=== PATIENT | male | born 1960 | race Caucasian/White ===

== ENCOUNTER 2019-06-24 02:53 | Observation (INO) | payer BC ==
[2019-06-24] VITALS (9 sets, daily range): BP systolic 139–148; BP diastolic 55–93; Ht 180.3 cm; Wt 120.5 kg
[~2019-06-24] VITALS: Ht 180.3 cm; Wt 120.5 kg
--- NOTE | ~2019-06-24 | HEMODYNAMI ---
PATIENT:KEVIN PARKER MEDICAL RECORD: [id number] : 62 LOCATION:[facility] D.2125 ADMISSION DATE: 06/24/19 Generatedon:06/24/201910:57 Patient name: KEVIN PARKER Patient #: [id number] SSN: [id number] : 1960 Date of study: 06/24/2019 Page: Of Hemodynamic Procedure Report Patient Data Patient Demographics Procedure consent was obtained First Name: KEVIN Gender: Male Last Name: KEITH : 1960 Middle Initial: EDWARD Age: 58 year(s) Patient #: [id number] Race: Unknown SSN: [id number] Additional ID: [id number] Contact details Address: [address] [place] [address] State: [place] City: [place] Zip code: [address] Admission Admission Data Admission Date: 06/24/2019 Admission Time: 3:02 Admit Source: Emergency department Room #: D.2125 Height (in.): 70.87 BSA: 2.37 (m2) Height (cm.): 180 BMI: 37.04 (kg/m2) Weight (lbs.): 264.56 Weight (kg.): 120 Lab Results Lab Result Date: 06/24/2019 Lab Result Time: 0:00 Biochemistry Name Units Result Min Max BUN mg/dl 14 --(--*-)-- 7 18 Creatinine mg/dl 1.3 --(---*)-- 0.6 1.3 eGFR ml/min 60 *-(----)-- 90 120 NONAFRICAN CBC Name Units Result Min Max Hematocrit % 49 --(--*-)-- 42 54 Hemoglobin g/dl 16.4 --(--*-)-- 13.5 17.5 Procedure Procedure Types Cath Procedure Diagnostic Procedure C [facility] w/Coronaries Sedation Charges Moderate Sedation up to 15 minutes Procedure Description Procedure Date Procedure Date: 06/24/2019 Procedure Start Time: 10:43 Procedure End Time: 10:52 Procedure Staff Name Function Ben Howe MD Performing Physician Kandice Rene RT Monitor Kiarra Ledbetter RT Scrub Courtney Meza RN Nurse Procedure Data Cath Procedure Fluoroscopy Diagnostic fluoroscopy Total fluoroscopy Time: 2.1 time: 2.1 min min Diagnostic fluoroscopy Total fluoroscopy dose: 447 dose: 447 mGy mGy Contrast Material Contrast Material Type Amount (ml) Isovue 300 55 Entry Location Entry Primary Successful Side Size Upsize Upsize Entry Closure Succes sful Closure Location (Fr) 1 (Fr) 2 (Fr) Remarks Device Remarks Femoral Right 5 Fr Exoseal artery Estimated blood loss: 5 ml Diagnostic catheters Device Type Used For End Catheter Placement MULTIPACK JL 4.0 5Fr Procedure catheter DIAGNOSTIC JL 5 5Fr Procedure catheter ([id number]) MULTIPACK 3DRC 5Fr Procedure catheter MULTIPACK Pigtail 5 Fr Ventriculography catheter Procedure Complications No complications Procedure Medications Medication Administration Route Dosage 0.9% NaCl I.V. 50 ml/hr Lidocaine 2% added to field 20 Heparin Flush Bag added to field 2 bags (1000units/500ml NS) Oxygen NC 2 l/min Versed I.V. 1 mg Fentanyl I.V. 50 mcg Versed I.V. 1 mg Fentanyl I.V. 50 mcg Hemodynamics Rest BSA: 2.37 (m2) HGB: 16.4 (g/dl) O2 Consumption: Estimated: 291.16 (ml/min) O2 Co nsumption indexed: Estimated:122.85 (ml/min/m) Heart Rate: 83 (bpm) Pressure Samples Time Site Value (mmHg) Purpose Heart Use Rate(bpm) 10:50 LV 125/4,4 Snapshot 81 Gradients Valve Time Site Site Mean SEP/DFP Peak To Heart Use 1 2 (mmHg) (sec/min) Peak Rate (mmHg) (bpm) Aortic 10:50 LV AO 88 Snapshots Pre Cath Intra NCS Post Cath Vital Signs Time Heart Resp SPO2 etCO2 NIBP (mmHg) Rhythm Pain Sedation Rate (ipm) (%) (mmHg) Status Level (bpm) 10:36:53 80 17 99 31.5 161/93(116) NSR 0 (11) 10(A) , No pain 10:41:29 80 17 99 29.2 149/88(109) NSR 0 (11) 9(A) , No pain 10:45:59 83 15 96 31.5 123/81(101) NSR 0 (11) 9(A) , No pain 10:50:20 88 15 98 28.5 145/90(113) NSR 0 (11) 10(A) , No pain Medications Time Medication Route Dose Verified Delivered Reason Notes Effe ctiveness by by 10:35:48 0.9% NaCl I.V. 50 Ben Courtney used for ml/hr [facility] procedure MD PERALTA 10:35:56 Lidocaine 2% added 20ml Ben Courtney for local to vial [facility] anesthetic field MD PERALTA 10:36:04 Heparin Flush added 2 Ben Courtney used for Bag to bags [facility] procedure (1000units/500ml field MD PERALTA NS) 10:36:14 Oxygen NC 2 Ben Court[facility] 10:41:17 Versed I.V. 1 mg Ben Courtney for [facility] sedation MD PERALTA 10:41:24 Fentanyl I.V. 50 Ben Courtney for mcg [facility] sedation MD PERALTA 10:45:06 Versed I.V. 1 mg Ben Courtney for [facility] sedation MD PERALTA 10:45:10 Fentanyl I.V. 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 10:01:10 Courtney Meza RN sent for patient. Start room use. 10:01:10 Time tracking: Regular hours (M-F 7:00 - 5:00) 10:01:15 Plan of Care:Hemodynamics will remain stable., Cardiac rhythm will remain stable., Comfort level will be maintained., Respiratory function will remain adequate., Patient/ family verbilizes understanding of procedure., Procedure tolerated without complication., Recovers from procedure without complications.. 10:07:54 H&P Date Dictated: 06/24/2019 ER History on chart.. 10:08:50 Lab Result : BUN 14 mg/dl 10:08:50 Lab Result : Creatinine 1.3 mg/dl 10:08:50 Lab Result : eGFR NONAFRICAN 60 ml/min 10:08:50 Lab Result : Hematocrit 49 % 10:08:50 Lab Result : Hemoglobin 16.4 g/dl 10:17:31 Patient Height : 70.87 inches 10:17:35 Patient Weight : 264.56 lbs 10:17:41 Admit Source: Emergency department 10:18:03 Stress Test: no; N/A NSTEMI 10:27:20 Patient received from Med II to CCL 1 Alert and oriented. Tansferred to table in Supine position. 10:27:21 Warm blankets applied, and josh hugger turned on for patient comfort. 10:27:21 Correct patient and procedure confirmed by team. 10:27:22 ECG and BP/O2 sat monitors applied to patient. 10:35:32 Vital chart was started 10:35:48 0.9% NaCl 50 ml/hr I.V. was administered by Courtney Meza RN; used for procedure; Verbal order read back and verified. 10:35:56 Lidocaine 2% 20ml vial added to field was administered by Courtney Meza RN; for local anesthetic; Verbal order read back and verified. 10:36:04 Heparin Flush Bag (1000units/500ml NS) 2 bags added to field was administered by Courtney Meza RN; used for procedure; Verbal order read back and verified. 10:36:09 Baseline sample Acquired. 10:36:14 Oxygen 2 l/min NC was administered by Courtney Meza RN; for low 02 sats; Verbal order read back and verified. 10:36:16 Rhythm: sinus rhythm 10:36:18 Full Disclosure recording started 10:36:20 Pre-procedure instructions explained to patient. 10:36:39 Family in waiting room. 10:36:44 Is the patient allergic to Iodine/contrast media? No. 10:36:47 Was the patient premedicated? Yes 10:36:50 Is patient on blood thinner?Yes 10:36:55 ACC The patient was administered the following blood thiners within the last 24 hours: ACCHeparin 10:36:57 Patient diabetic? No. 10:37:01 Snore? Yes 10:37:02 Sleep apnea? Yes 10:37:09 Airway obstruction? Yes ASTHMA 10:37:14 Patient pain scale 0/10 ?. 10:37:22 IV patent on arrival in right hand with 0.9% NaCl at O. 10:37:26 Lab results completed and on chart. 10:37:35 Right groin area was prepped with chlora-prep and draped in sterile fashion 10:37:36 Alarms reviewed by R. N. 10:37:37 Sharps counted by scrub and verified by R.N. 10:37:38 Physician paged 10:37:46 Use device set Femoral Dx 10:37:47 ACIST Syringe (58692) opened to sterile field. 10:37:47 Bag Decanter (2002S) opened to sterile field. 10:37:48 Medline Cath Pack ([id number]) opened to sterile field. 10:37:49 ACIST Hand Control (91250) opened to sterile field. 10:37:50 ACIST Manifold (47745) opened to sterile field. 10:37:50 DIAGNOSTIC Multipack 5Fr catheter set ([id number]) opened to sterile field. 10:37:52 Tegaderm 4 x 4 (1626W) opened to sterile field. 10:37:53 SHEATH 5FR [place] (YVE525) opened to sterile field. 10:37:54 EMERALD Guide Wire (228-919) opened to sterile field. 10:39:39 --------ALL STOP TIME OUT------ 10:39:40 Final Timeout: patient, procedure, and site verified with staff and physician. All members of the team are in agreement. 10:39:41 Right groin site verified by team. 10:39:46 Fire Safety Assessment: A--An alcohol-based skin anteseptic being used preoperatively., C--Open oxygen or nitrous oxide is being used., D--An ESU, laser, or fiber-optic light is being used. 10:39:50 Physical assessment completed. ASA score P 3 - A patient with severe systemic disease as per Ben Howe MD. 10:39:57 2) 60-89 Mildly reduced kidney function, and other findings (as for stage 1) point to kidney disease. 10:40:01 Maximum allowable contrast dose (3.7 X eGFR X 0.75)167 ml. 10:40:06 Sedation plan: IV Moderate Sedation Medication:Versed, Fentanyl 10:41:17 Versed 1 mg I.V. was administered by Courtney Meza RN; for sedation; Verbal order read back and verified. 10:41:24 Fentanyl 50 mcg I.V. was administered by Courtney Meza RN; for sedation; Verbal order read back and verified. 10:42:52 Procedure started. 10:43:28 Local anesthetic to right femoral artery with Lidocaine 2% by Ben Howe MD.INITIAL ACCESS ONLY 10:43:37 A 5 Fr sheath was inserted into the Right Femoral artery 10:43:43 J wire advanced. 10:44:07 A MULTIPACK JL 4.0 5Fr catheter was advanced over the wire and used for Procedure. 10:45:06 Versed 1 mg I.V. was administered by Courtney Meza RN; for sedation; Verbal order read back and verified. 10:45:10 Fentanyl 50 mcg I.V. was administered by Courtney Meza RN; for sedation; Verbal order read back and verified. 10:45:35 UNABLE TO CANNULATE, JL4 REMOVED 10:46:03 A DIAGNOSTIC JL 5 5Fr catheter ([id number]) was advanced over the wire and used for Procedure. 10:46:06 LCA angiography performed. 10:47:12 Catheter removed. 10:47:21 A MULTIPACK 3DRC 5Fr catheter was advanced over the wire and used for Procedure. 10:47:25 RCA angiography performed. 10:48:12 Catheter removed. 10:48:20 A MULTIPACK Pigtail 5 Fr catheter was advanced over the wire and used for Ventriculography. 10:48:22 Zero performed for pressure channel P1 10:48:34 LV angiography performed. 10:48:38 LV gram done using HERRON 10:48:44 EXOSEAL 5Fr (EX500) opened to sterile field. 10:50:34 EF : 60 % 10:50:38 Catheter removed. 10:50:48 Sheath removed intact; hemostasis achieved with Exoseal to the Right Femoral artery. 10:50:51 Procedure ended.(Physican Out) 10:50:59 Fluoroscopy time 02.10 minutes. 10:51:04 Fluoroscopy dose: 447 mGy 10:51:04 Flurop Dose total: 447 10:51:09 Dose Area Product 46355 mGy/cm. 10:51:27 Contrast amount:Isovue 300 55ml. 10:51:29 Maximum allowable dose exceeded? No. 10:51:33 Insertion/operative site no bleeding no hematoma. 10:51:37 Post right femoral artery:stable 10:51:41 Post Procedure Pulses reassessed and unchanged 10:51:44 Post-procedure physical assessment completed. ASA score P 2 - A patient with mild systemic disease as per Ben Howe MD. 10:51:48 Post procedure rhythm: unchanged. 10:51:51 Estimated blood loss: 5 ml 10:51:53 Post procedure instruction explained to patient.Patient verbalizes understanding. 10:52:10 Procedure type changed to Cath procedure, Diagnostic procedure, LHC, C w/Coronaries, Sedation Charges, Moderate Sedation up to 15 minutes 10:52:12 Procedure and supply charges have been captured, reviewed, submitted and are correct. 10:52:29 Procedure Complication : No complications 10:52:32 Vital chart was stopped 10:52:36 [facility] Findings: mild to moderate CAD (<70%) 10:52:39 See physician's report for complete and final results. 10:52:44 Report given to [facility]. 10:52:48 Patient transfered to [facility] II with Bed. 10:52:50 Procedure ended. 10:52:50 Full Disclosure recording stopped 10:53:01 End room use (Document Last) Device Usage Item Name Manufacture Quantity Catalog Hospital Part Current Minimal L ot# / Number Charge Number Stock Stock Serial# Code ACIST Acist 1 66603 142450 382036 096191 20 Syringe Medical (64248) Systems Inc Bag Microtek 1 2001S 755842 62397 991418 5 Decanter Medical Inc. () Medline Medline 1 [id number] 422123 61815 496448 5 Cath Pack ([id number]) ACIST Hand Acist 1 90638 784894 155929 764315 5 Control Medical (93651) Systems Inc ACIST Acist 1 80412 196748 107415 526060 5 Manifold Medical (98129) Systems Inc DIAGNOSTIC Cardinal 1 [id number] 835530 28312 384664 [facility] 5Fr catheter set (YU1435) Tegaderm 4 3M 1 1626W 449432 081497 460164 5 x 4 (1626W) SHEATH 5FR Terumo 1 [id number] 461414 502905 175672 5 [place] (GWF041) EMERALD Cardinal 1 502-455 968907 645760 184500 5 Guide Wire Health (762-845) MULTIPACK Cardinal 1 880961 5 JL 4.0 5Fr Health catheter DIAGNOSTIC Cardinal 1 [id number] 137184 614300 115913 5 JL 5 5Fr Health catheter (124043Y) MULTIPACK Cardinal 1 325473 5 3DRC 5Fr Health catheter MULTIPACK Cardinal 1 991757 5 Pigtail 5 Health Fr catheter EXOSEAL 5Fr Cardinal 1 EX500 698560 269404 680145 10 (EX500) Health Signature Audit [place] Stage Time Signature Unsigned Intra-Procedure 06/24/2019 Kandice Rene 10:56:03 AM RT(R) Intra-Procedure 06/24/2019 Courtney 10:56:43 AM Susaan RN Intra-Procedure 06/24/2019 Ben Duff 10:57:02 AM Hang [facility] [address] [place] [address]
[2019-06-24] MEDS ORDERED: BAYER CHEWABLE81 MG PO (02:57)
[2019-06-24] MEDS ORDERED: CARDIZEM120 MG PO (02:58)
[2019-06-24] MEDS ORDERED: COREG 3.1253.125 MG PO (02:59)
[2019-06-24 03:37] LABS: TROPONIN-I < 0.017 ng/mL (0.000-0.060)
[2019-06-24 03:43] LABS: MAGNESIUM - SERUM 2.1 mg/dL (1.8-2.4)
--- NOTE | 2019-06-24 04:07 | NUR ---
RECEIVED REPORT FROM KATHRYN EVANS.
--- NOTE | 2019-06-24 04:54 | NUR ---
RECEIVED PATIENT TO ROOM 2125 @ 2281. PATIENT IS AAOX4, UP AD MIRACLE. PIV TO RT HAND, SL. NO S/S OF DISTRESS, RR EVEN AND UNLABORED ON ROOM AIR. TELEMTRY APPLIED, QUICK START, MED REC, SRS, FIRST CONTACT, ADULT HX ALL COMPLETED. PATIENT DENIES NEEDS AT THIS TIME. CL IN REACH, BED LOCKED AND LOWERED. AT BEDSIDE. WILL CTM.
--- NOTE | 2019-06-24 06:29 | NUR ---
I have reviewed this patient and I concur with the Shift Assessment completed by the Licensed Practical Nurse today this shift.
[2019-06-24 09:35] LABS: BASOPHILS 0.5 % (0-2); EOSINOPHILS 2.3 % (0-7); HEMOGLOBIN 16.4 g/dL (13.5-17.5); IMMATURE GRANULOCYTES 0.2 % (0-5); LYMPHOCYTES 17.5 % (15-50); MCH 35.9 pg (26.0-34.0); MCHC 33.5 g/dL (31.0-37.0); MCV 107.2 fL (80.0-100.0); MEAN PLATELET VOLUME 9.6 fL (7.4-10.4); MONOCYTES 10.9 % (2-11); NEUTROPHILS 68.6 % (40-80); PLATELET COUNT 245 10x3/uL (130-400); RBC 4.57 10x6/uL (4.20-6.10); RDW 16.2 % (11.5-14.5); WBC 6.6 10x3/uL (4.8-10.8)
[2019-06-24 09:42] LABS: ANION GAP 10.1 mmol/L (8-16); CALCIUM 9.2 mg/dL (8.5-10.1); CARBON DIOXIDE 28.9 mmol/L (21.0-32.0); CHOL - HDL RATIO 5.5 ratio (2.3-4.9); CREATININE - SERUM 1.3 mg/dL (0.6-1.3); LDL-HDL RATIO 3.7 ratio (1.5-3.5)
--- NOTE | 2019-06-24 10:23 | NUR ---
PT PREOP'D AND TAKEN TO PODIATRIC ASSISTANT.
--- NOTE | 2019-06-24 11:15 | NUR ---
PT RETURNED TO ROOM LAYING FLAT IN BED. ON ROOM AIR. ALERT AND ORIENTED. PT AWARE TO LAY FLAT FOR TWO HOURS. RIGHT GROIN SOFT DRESSING C/D/I SHOWS NO S/S OF HEMATOMA. AT BEDSIDE. DR. CARMONA IN ROOM SPEAKING WITH PT AND . BED LOW. CL IN REACH.
--- NOTE | 2019-06-24 11:30 | NUR ---
NO CHANGE TO RIGHT GROIN FROM PREVIOUS ASSESSMENT.
--- NOTE | 2019-06-24 12:19 | NUR ---
I have reviewed this patient and I concur with the Shift Assessment completed by the Licensed Practical Nurse today this shift.
[2019-06-24] MEDS ORDERED: RYTHMOL SR225 MG PO (12:27)
--- NOTE | 2019-06-24 13:47 | CN ---
PATIENT NAME:KEVIN PARKER MEDICAL RECORD: [id number] : 62 LOCATION:D. D.2125 ADMIT DATE: 06/24/19 ACCOUNT: [id number] CONSULTING PHYSICIAN: ALEX CAMPBELL MD REFERRING PHYSICIAN: SKYLER MARQUEZ MD DATE OF CONSULTATION: 06/24/2019 HISTORY OF PRESENT ILLNESS: A 58-year-old gentleman with a history of cardiomyopathy diagnosed previously, on carvedilol therapy, has been having more dyspnea, chest tightness, pressure with exertion over typically the past week or so, was accompanied by arrhythmogenic type symptomatology. EF is 35 in the past, does have a history of hypertension, strong family history of coronary artery disease. We are asked to see him concerning his cardiovascular status. PAST MEDICAL HISTORY: Includes; 1. History of cardiomyopathy. 2. Hypertension. 3. Cardiac arrhythmias. ALLERGIES: None known. SOCIAL HISTORY: Nonsmoker, nondrinker. He is able to care of all his ADLs. MEDICATIONS: Include carvedilol 3.125 every day, diltiazem 120 every day, aspirin 81 every day. REVIEW OF SYSTEMS: The patient reports easy bruising but reports no swollen glands. The patient reports no fever, no night sweats, no significant weight gain, no significant weight loss. No significant exercise tolerance. The patient reports no dry eyes, no irritation, no vision change. Patient reports no difficulty hearing and no ear pain. Patient reports no frequent nose bleeds or nose and sinus problems. Patient reports on arm pain on exertion. No shortness of breath while lying down. No history of heart murmur. Patient reports no cough, no wheezing or coughing up blood. Patient reports no abdominal pain, no vomiting. Normal appetite. No diarrhea and not vomiting blood. No nausea and no constipation. Patient reports no incontinence. No difficulty urinating. No hematuria. No increased frequency. Patient reports no muscle aches. No weakness, no arthralgias, no back pain. No swelling of the extremities. Patient reports no abnormal mole, no jaundice, no rashes. Reports no loss of consciousness. No weakness and no numbness. No seizures, dizziness, or headaches. The patient reports no depression, no sleep disturbance, feeling safe in a relationship and no alcohol abuse. Patient reports on fatigue. Reports no runny nose or sinus pressure. No itching, no hives, and no frequent sneezing. PHYSICAL EXAMINATION: GENERAL: Pleasant gentleman in no acute distress, appears stated age. VITAL SIGNS: Blood pressure 139/85, pulse 77, frequent extrasystoles. HEENT: Normocephalic, atraumatic. NECK: No JVD or bruit. HEART: Regular. A II/ systolic ejection murmur. I do not hear an S3 gallop. There is frequent extrasystole. LUNGS: Good air excursion. ABDOMEN: Soft, nontender. EXTREMITIES: Pulses are 2+ with no edema. CONSULT REPORT [id number] KEVIN PARKER NEUROLOGIC: Grossly intact. DIAGNOSTIC DATA: ECG shows nonspecific ST-T changes inferolaterally, LVH versus possible ischemia. IMPRESSION: Acute coronary syndrome with known history of cardiomyopathy. We will plan for angiography, intervention based on the above. TRANSINT:[id number] Voice Confirmation ID: [id number] DOCUMENT ID: [id number] ALEX CAMPBELL MD at 1347 CC: [id number] DICTATION DATE: 06/24/19 0846 DIGITAL IMAGING SPECIALIST: 06/24/19 1106 ADM IN [place] [address] [place] [address]
--- NOTE | 2019-06-24 17:25 | NUR ---
WRITTEN SCRIPT OF SOTALOL 225 MG #60 ONE TAB BID CALLED TO [facility] IN [place]. SPOKE TO MIGUEL A AYALA WITH 3 REFILLS.
--- NOTE | 2019-06-24 17:38 | NUR ---
TELEMTRY DC'D. RIGHT HAND 20G IV DC'D WITH CATH INTACT. DISCHARGE INSTRUCTIONS GIVEN TO PT. PT HAS NO FURTHER QUESTIONS. CHART COPY SIGNED. PT DENIED NEED FOR WC. PT AMBULATED OUT OF HOSPITAL WITH AND LEFT IN THEIR PERSONAL VEHICLE.
--- NOTE | 2019-06-25 14:26 | OP ---
PATIENT NAME: KEVIN PARKER MEDICAL RECORD: [id number] :62 LOCATION:D.M2 D.2125 ADMISSION DATE:06/24/19 SURGEON: ALEX CAMPBELL MD DATE OF OPERATION: 06/24/2019 PROCEDURE: Left heart catheterization, selective coronary angiography, right femoral artery approach. CATHETERS: A 5-Azeri sheath, 5/4 left and right Sandra, 5/4 pig. The procedure was well tolerated. The patient was returned to [facility]. Sheath removed. ExoSeal device placed. FINDINGS: Left ventriculography in 30-degree HERRON view; normal wall motion and normal systolic function. CORONARY ANATOMY: LEFT MAIN: Left main is free of disease. LAD: LAD is free of disease in the diagonal system. CIRCUMFLEX: Free of disease in the marginal system. RIGHT CORONARY ARTERY: Dominant artery, gives rise to PDA, free of disease. IMPRESSION: Normal left ventricular systolic function. Normal coronary anatomy. TRANSINT:[id number] Voice Confirmation ID: [id number] DOCUMENT ID: [id number] ALEX CAMPBELL MD at 1426 CC: [id number] DICTATION DATE: 06/24/19 1100 CALL CENTER NURSE: 06/24/19 1402 DIS IN 06/24/19 [place] [id number] [place] [address]
== END 2019-06-24 17:40 | disposition home or self-care (01) ==
LOC: D.ER 02:53 → D.M2 03:02 → OBSVTIME 03:02 → D.M2 17:40
PROVIDERS: Family Medicine; Internal Medicine Interventional Cardiology; ADMIT Family Medicine; ATTEND Family Medicine
DX: I20.0 Unstable angina (principal); I42.9 Cardiomyopathy, unspecified; I10 Essential (primary) hypertension